=== PATIENT | female | born 1995 | race Caucasian/White ===

== ENCOUNTER 2025-03-26 19:34 | Emergency (ER) | payer OTHER, SELFPAY ==
--- NOTE | ~2025-03-26 | CT_ITS ---
EXAMINATION: CT lumbar spine wo con DATE: 03/26/2025 23:33 INDICATION: Worsening back pain and sacroiliac joint pain. TECHNIQUE: Computed tomography (CT) of the lumbar spine was performed without intravenous contrast. A utomated exposure control and iterative reconstruction technique were employed. The dose-length produ ct was 1044.19 mGy-cm. COMPARISON: None FINDINGS: Alignment is normal. Vertebral body heights are normal. No fractures. Disc heights are normal. Mild d isc bulges resulting in minimal central canal stenosis and mild bilateral neural from stenosis at L3- L4, L4-L5 and L5-S1. There is minimal to mild multilevel lumbar facet osteoarthritis. The visualized paravertebral soft tissues are unremarkable. There are erosions and subarticular sclerosis along the bilateral sacral back joints consistent with relatively symmetric bilateral sacroiliitis. IMPRESSION: 1. Minimal lumbar spondylosis. 2. Relatively symmetric bilateral sacroiliitis which could be seen with ankylosing spondylitis, idiop athic arthritis setting of Crohn's disease or ulcerative colitis and rheumatoid arthritis. Differenti al would also include reactive or psoriatic arthritis although this is more typically asymmetric. Reviewed, dictated and finalized at location A. IMPRESSION: 1. Minimal lumbar spondylosis. 2. Relatively symmetric bilateral sacroiliitis which could be seen with ankylos ing spondylitis, idiopathic arthritis setting of Crohn's disease or ulcerative colitis and rheumatoid arthritis. Differential would also include reactive or p soriatic arthritis although this is more typically asymmetric.
--- NOTE | ~2025-03-26 | CT_ITS ---
EXAMINATION: CT hip RT wo con DATE: 03/26/2025 23:32 INDICATION: Worsening sacroiliac joint pain TECHNIQUE: High resolution computed tomography (CT) of the right hip was performed without intravenou s contrast. Additional sagittal and coronal reconstructions were performed. Automated exposure contro l and iterative reconstruction technique were employed. The dose-length product was 544.50 mGy-cm. COMPARISON: CT lumbar spine dated 03/26/2025 FINDINGS: Alignment is normal. No fracture or suspected osteonecrosis. Minimal osteoarthritis at the right hip with relatively preserved joint space but tiny marginal osteophytes along the margins of the femoral head and posterior superior right acetabulum. There are subarticular erosions and sclerosis at the ri ght sacroiliac joint which appears relatively symmetric with similar sacroiliitis at the contralatera l left sacral erect joint of the lumbar spine CT. Visualized portion of the bladder, uterus and bowel s in the pelvis are normal including a normal appendix. No free fluid in the pelvis or pathological e nlarged right pelvic or inguinal lymphadenopathy. Couple foci of gas in the subcutaneous fat at the r ight buttock likely related to recent subcutaneous injection. IMPRESSION: 1. 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 No acute osseous abnormality. 2. Sacroiliitis which appears relatively symmetric at the contralateral left sacral iliac joint on co ntemporaneous lumbar spine CT which could be due to the closing spondylitis, intrapelvic osteoarthrit is related to Crohn's disease or ulcerative colitis with rheumatoid arthritis. Would typically asymme tric differential would also include reactive or psoriatic arthritis. Reviewed, dictated and finalized at location A. IMPRESSION: 1. 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 No acute osseous abnormality. 2. Sacroiliitis which appears relatively symmetric at the contralateral left sa cral iliac joint on contemporaneous lumbar spine CT which could be due to the c losing spondylitis, intrapelvic osteoarthritis related to Crohn's disease or ul cerative colitis with rheumatoid arthritis. Would typically asymmetric differen tial would also include reactive or psoriatic arthritis.
[2025-03-26 19:46] VITALS: BP 161/99; PULSE 123; RESP 20; TEMP 36.7; O2SAT 98
--- NOTE | 2025-03-26 23:12 | ED_ITS ---
HPI - Back Pain/Injury General Chief Complaint: Back Pain/Injury Stated Complaint: R lower back pain/radiates down leg Time Seen by Provider: 03/26/25 22:13 History of Present Illness HPI Narrative: 29-year-old female presenting to the emergency department via walk-in triage with normal ambulation. She is complaining of right-sided hip and low back pain. Patient states she has been having SI joint issues for some years and sees a chiropractor to obtain x-rays yesterday without any findings. Patient has been taking steroids with a Medrol Lai, gabapentin without any relief of symptoms. She states she had initial great relief of symptoms after the 1st 2 days of the steroids but after she start tapering him off they no longer work as she was having recurrence of her pain. Endorses some tightness in the right- sided hip and back region. No weakness, no footdrop, no neuropathy at this time. No injury, car accidents, falls. Related Data Home Medications ?Medication ?Instructions ?Recorded ?Confirmed ?Last Taken ?Type tretinoin 0.025 % topical cream applic topical 01/19/25 01/19/25 Unknown History Allergies Allergy/AdvReac Type Severity Reaction Status Date / Time No Known Allergies Allergy Mild Verified 03/26/25 19:51 Review of Systems Review of Systems: As reviewed above [facility] Surgical History Surgical History H/O gynecological procedure mirena iud 12/15 Family History Family History Other Breast cancer Disease of liver Social History Social History Smoking status: Never smoker Alcohol intake: current Alcohol use details: socially Substance use: never Substance use type: does not use Do You Feel Safe in your Home?: Yes Lack of Transportation: No Lack of Food: Never True Current Housing: I Have Housing Concerned About Future Housing: No Difficulty Paying Gas/Electric Bills: No Difficulty Paying for Meds: No Currently Unemployed: No Education: Master's Degree or Higher Difficulty w/ Childcare or Family Care: No Living arrangements: with family Occupation/Education: occupation Additional occupation/education comments: Speech path Gender identity (if verbalized by the patient): Female Sexual Orientation (if Verbalized by the Patient): Straight or Heterosexual Exam Narrative: GENERAL: [Well-appearing, well-nourished, and in no acute distress.] HEAD: [Normocephalic, atraumatic.] EYES: [PERRLA and EOMI.] ENT: Nares clear, no rhinorrhea or epistaxis. Mucous membranes moist. NECK: Supple. CHEST: No labored respiration HEART: [Regular rate and rhythm]. No murmur heard. [Normal peripheral pulses.] ABDOMEN: [Soft, nondistended] EXTREMITIES: Normal range of motion. [No edema.] SKIN: Warm, dry, no rash. NEURO: [No focal deficits]. Alert and oriented [x3.] No footdrop, full range of motion of the hip and knee, ankle. Plantar and dorsiflexion 5/5. PSYCH: [Normal mood and affect.] Course Vital Signs Vital signs: Vital Signs Temperature 36.7 C 03/26/25 19:46 Pulse Rate 123 H 03/26/25 19:46 Respiratory Rate 20 03/26/25 19:46 Blood Pressure 161/99 H 03/26/25 19:46 Pulse Oximetry 98 03/26/25 19:46 Oxygen Delivery Room Air 03/26/25 19:46 Temperature 36.7 C 03/26/25 19:46 Pulse Rate 96 03/27/25 02:19 Respiratory Rate 17 03/27/25 02:19 Blood Pressure 143/84 H 03/27/25 02:19 Pulse Oximetry 100 03/27/25 02:19 Oxygen Delivery Room Air 03/26/25 19:46 MDM - Back Pain/Injury MDM Narrative Medical decision making narrative: 29-year-old female with a past medical history including sacroiliac pain and she sees a chiropractor. For last 2-3 days she has been having worsening pain on her right sacroiliac region and low back/right hip. No neurological deficits she is ambulatory with a steady gait. She does appear in pain but not acute uncomfortable. She has good dorsalis pedis pulses and otherwise well-perfused extremity. On examination is unremarkable. Ambulatory in the emergency department. Suspicion presently is for sacroiliac joint pain, sacroiliitis, lumbar radiculopathy and low suspicion for fracture or malalignment/dislocation given the lacking history of trauma. CTs of the hip and lumbar spine were obtained given patient's degree of pain and she will be started on Decadron intramuscular injection with Toradol for relief. She responded nicely to oral outpatient steroids but states that the pain came back after she started tapering off the steroids. She has a pain management appointment on Friday to discuss this and will get the workup here and discharge her home with steroids and her home pain medications. Patient is comfortable with this plan. She was given return precautions. CT scan showed no acute findings in the L-spine, the right hip has bilateral sacroiliitis consistent with patient's history but no focal finding do show any joint destruction. No acute findings otherwise. Patient felt better after pain control and will be sent home with prednisone and encouraged to follow-up with her doctors on a short-term basis which she has already scheduled for appoint ment in 2 days. Patient's questions were answered she was discharged. Medical Records Attestation: I reviewed the patient's medical records. Lab Data Attestation: I reviewed the patient's lab results. Imaging Data Attestation: I personally reviewed and interpreted this imaging study as follows: My impression: Bilateral sacroiliitis, no acute findings and hip were L-spine Discharge Plan Discharge Clinical Impression: Bilateral sacroiliitis, Hip pain, right Patient Disposition: Home Condition: Stable Instructions: Antibiotic Form, Sacroiliitis (ED), Lower Back Exercises (ED) Additional Instructions: Your CT scan shows bilateral sacroiliitis likely right worse than left given your symptoms. No fractures or dislocations and no joint destruction in the scans. We will start you on high dose steroids and encouraged to follow-up on outpatient basis with your primary doctor and dip painter. Return with any emergencies. Return to the ER if you have increased pain in your back, you develop lower extremity weakness/numbness/paralysis, you have numbness or tingling in your private parts, or you are unable to control your ability to urinate/stool. Patient Language: Niuean Prescriptions: New ketorolac 10 mg tablet 10 mg PO Q8H PRN (Reason: pain) 5 Days Qty: 20 0RF Rx Instructions: maximum total duration of 5 days from all oral, intranasal, or parenteral formulations methocarbamol 750 mg tablet 750 mg PO TID PRN (Reason: pain) Qty: 20 0RF prednisone 50 mg tablet 50 mg PO DAILY 5 Days Qty: 5 0RF No Action tretinoin 0.025 % cream topical Follow-up/Referrals: PHYSICIAN,SENIOR TELECOMMUNICATIONS SPECIALIST [Primary Care Provider] - Time of Disposition: 00:43
[2025-03-26] MEDS: KETOROLAC 30 MG/ML VIAL (*BKC) IM (23:57)
[2025-03-26] MEDS: dexAMETHasone SOD PHOS INJ 10 MG/ML 1 ML VIAL IM (23:57)
[2025-03-27 00:57] VITALS: BP 143/84; PULSE 96; RESP 17; O2SAT 100
[2025-03-27 02:19] VITALS: BP 143/84; PULSE 96; RESP 17; O2SAT 100
== END 2025-03-27 02:21 | disposition home or self-care (01) ==
PROVIDERS: Emergency Provider Student in an Organized Health Care Education/Training Program
DX: M46.1 Sacroiliitis, not elsewhere classified (principal); M25.551 Pain in right hip
CPT/HCPCS: 72131; 73700; 96372; 99284; J1100; J1885